=== PATIENT | male | born 1980 | race Caucasian/White ===

== ENCOUNTER 2018-11-26 20:59 | Emergency (ER) | payer OTHER ==
[~2018-11-26] VITALS: Ht 172.7 cm; Wt 99.9 kg
[2018-11-26 21:07] VITALS: Ht 172.7 cm; Wt 99.9 kg
[2018-11-26 23:50] VITALS: BP 110/60
== END 2018-11-26 23:50 | disposition home or self-care (01) ==
LOC: ED 20:59
DX: J45.909 Unspecified asthma, uncomplicated (principal); Z98.890 Other specified postprocedural states
CPT/HCPCS: J2920; J7620

== ENCOUNTER 2019-01-29 18:12 | Emergency (ER) | payer OTHER ==
[~2019-01-29] VITALS: Ht 172.7 cm; Wt 100.2 kg
[2019-01-29 18:15] VITALS: Ht 172.7 cm; Wt 100.2 kg
[2019-01-29 18:48] LABS: microscopic required? NO
[2019-01-29 19:02] LABS: urine erythrocyte NEGATIVE (NEGATIVE)
[2019-01-29 19:04] LABS: BASOPHIL % 1.1 % (0-2); PLATELET COUNT 234 x10^3mcL (130-400); RED CELL DISTRIBUTION WIDTH 13.8 % (11.5-14.5)
[2019-01-29 19:06] LABS: CALCIUM 8.9 mg/dL (8.5-10.1); CARBON DIOXIDE 30.4 mmol/L (21-32); CHLORIDE SERUM 104 mmol/L (98-107); GFR1 > 60 mL/min; GLUCOSE SERUM 98 mg/dL (74-106); SODIUM SERUM 141 mmol/L (136-145)
[2019-01-29 19:12] LABS: AMPHETAMINE QUAL UR NONE DETECTED (See below)
[2019-01-29 19:18] LABS: ALBUMIN 4.4 g/dL (3.4-5.0); ALKALINE PHOSPHATASE 66 U/L (46-116); ALT/SGPT 49 U/L (16-63); AST/SGOT 20 U/L (15-37); BILIRUBIN TOTAL 1.2 mg/dL (0.20-1.00); HDL CHOLESTEROL 57 mg/dL (40-60); LIPASE 121 IU/L (73-393); T4(THYROXINE) 6.8 ug/dL (4.7-13.3); TOTAL PROTEIN, SERUM 7.8 g/dL (6.4-8.2)
[2019-01-29 19:19] LABS: CHOLESTEROL 208 mg/dL (<200)
[2019-01-29 21:42] VITALS: BP 114/55
== END 2019-01-29 21:42 | disposition home or self-care (01) ==
LOC: ED 18:12
PROVIDERS: Emergency Medicine
DX: R10.13 Epigastric pain (principal); R11.0 Nausea; K21.9 Gastro-esophageal reflux disease without esophagitis; R10.11 Right upper quadrant pain
CPT/HCPCS: J1885; J2270; J3490; J7030; Q0092; Q9967

== ENCOUNTER 2019-01-31 15:56 | Emergency (ER) | payer OTHER ==
[~2019-01-31] VITALS: Ht 172.7 cm; Wt 101.2 kg
[2019-01-31 15:59] VITALS: Ht 172.7 cm; Wt 101.2 kg
[2019-01-31 17:06] LABS: microscopic required? NO
[2019-01-31 17:19] LABS: BASOPHIL % 0.3 % (0-2); PLATELET COUNT 223 x10^3mcL (130-400); RED CELL DISTRIBUTION WIDTH 13.7 % (11.5-14.5)
[2019-01-31 17:20] LABS: UA SPECIFIC GRAVITY 1.025 (1.005-1.035); urine erythrocyte NEGATIVE (NEGATIVE)
[2019-01-31 17:31] LABS: CALCIUM 8.7 mg/dL (8.5-10.1); CARBON DIOXIDE 30.2 mmol/L (21-32); CHLORIDE SERUM 104 mmol/L (98-107); CREATININE SERUM 1.1 mg/dL (0.7-1.3); GFR1 > 60 mL/min; GLUCOSE SERUM 95 mg/dL (74-106); POTASSIUM SERUM 3.9 mmol/L (3.5-5.1); SODIUM SERUM 141 mmol/L (136-145)
[2019-01-31 17:36] LABS: ALKALINE PHOSPHATASE 64 U/L (46-116); ALT/SGPT 42 U/L (16-63); AST/SGOT 17 U/L (15-37); BILIRUBIN TOTAL 1.21 mg/dL (0.20-1.00); LIPASE 89 IU/L (73-393); TOTAL PROTEIN, SERUM 7.4 g/dL (6.4-8.2)
[2019-01-31 19:41] VITALS: BP 110/60
== END 2019-01-31 19:41 | disposition home or self-care (01) ==
LOC: ED 15:56
PROVIDERS: Emergency Medicine
DX: R10.11 Right upper quadrant pain (principal); R11.0 Nausea; R35.0 Frequency of micturition
CPT/HCPCS: 36415; Q0092; Q0162

== ENCOUNTER 2019-10-14 23:35 | Emergency (ER) | payer OTHER ==
[~2019-10-14] VITALS: Ht 172.7 cm; Wt 101.6 kg
[2019-10-14 23:38] VITALS: Ht 172.7 cm; Wt 101.6 kg
[2019-10-15 01:29] LABS: CALCIUM 9.2 mg/dL (8.5-10.1); CARBON DIOXIDE 29.3 mmol/L (21-32); CHLORIDE SERUM 103 mmol/L (98-107); CREATININE SERUM 1.1 mg/dL (0.7-1.3); GFR1 > 60 mL/min; GLUCOSE SERUM 100 mg/dL (74-106); POTASSIUM SERUM 4.2 mmol/L (3.5-5.1); SODIUM SERUM 139 mmol/L (136-145)
[2019-10-15 01:34] LABS: ALBUMIN 4.3 g/dL (3.4-5.0); ALKALINE PHOSPHATASE 87 U/L (46-116); ALT/SGPT 23 U/L (16-63); AST/SGOT 22 U/L (15-37); BILIRUBIN TOTAL 0.47 mg/dL (0.20-1.00); HDL CHOLESTEROL 49 mg/dL (40-60); LIPASE 161 IU/L (73-393); TOTAL PROTEIN, SERUM 7.8 g/dL (6.4-8.2)
[2019-10-15 01:36] LABS: BASOPHIL % 0.4 % (0-2); PLATELET COUNT 247 x10^3mcL (130-400); RED CELL DISTRIBUTION WIDTH 13.4 % (11.5-14.5)
[2019-10-15 01:52] LABS: microscopic required? NO
[2019-10-15 02:01] LABS: CHOLESTEROL 214 mg/dL (<200); CHOLESTEROL/HDL RATIO 4.4; TRIGLYCERIDES 300 mg/dL (<150)
[2019-10-15 02:04] LABS: urine erythrocyte NEGATIVE (NEGATIVE)
[2019-10-15 02:43] VITALS: BP 117/66
== END 2019-10-15 02:43 | disposition home or self-care (01) ==
LOC: ED 23:35
PROVIDERS: Emergency Medicine; Specialist
DX: K29.70 Gastritis, unspecified, without bleeding (principal); R07.89 Other chest pain
CPT/HCPCS: 83880; Q0092

== ENCOUNTER 2019-11-22 22:07 | Emergency (ER) | payer OTHER ==
[~2019-11-22] VITALS: Ht 172.7 cm; Wt 103.9 kg
[2019-11-22 22:44] VITALS: Ht 172.7 cm; Wt 103.9 kg
[2019-11-23 02:28] VITALS: BP 124/65
== END 2019-11-23 01:05 | disposition home or self-care (01) ==
LOC: ED 22:07
DX: R51.9 Headache, unspecified (principal); G89.29 Other chronic pain; M54.2 Cervicalgia
CPT/HCPCS: J1200; J1885; J2765

== ENCOUNTER 2020-02-15 20:38 | Emergency (ER) | payer OTHER, SELFPAY ==
[~2020-02-15] VITALS: Ht 172.7 cm; Wt 102.1 kg
[2020-02-15 21:18] VITALS: Ht 172.7 cm; Wt 102.1 kg
[2020-02-15 22:10] LABS: microscopic required? NO
[2020-02-15 22:31] LABS: urine erythrocyte NEGATIVE (NEGATIVE)
[2020-02-15 23:18] LABS: BASOPHIL % 0.7 % (0.2-1.5); PLATELET COUNT 198 x10^3mcL (152-348); RED CELL DISTRIBUTION WIDTH 13.7 % (12.1-16.2)
[2020-02-15 23:46] LABS: CARBON DIOXIDE 29.2 mmol/L (21-32); CHLORIDE SERUM 102 mmol/L (98-107); CREATININE SERUM 1.1 mg/dL (0.7-1.3); GFR1 > 60 mL/min; GLUCOSE SERUM 96 mg/dL (74-106); POTASSIUM SERUM 4.3 mmol/L (3.5-5.1); SODIUM SERUM 139 mmol/L (136-145)
[2020-02-15 23:50] LABS: ALBUMIN 4.4 g/dL (3.4-5.0); ALKALINE PHOSPHATASE 74 U/L (46-116); ALT/SGPT 31 U/L (16-63); AST/SGOT 19 U/L (15-37); BILIRUBIN DIRECT 0.15 mg/dL (0.0-0.2); BILIRUBIN TOTAL 0.6 mg/dL (0.20-1.00); CALCIUM 8.9 mg/dL (8.5-10.1); TOTAL PROTEIN, SERUM 7.6 g/dL (6.4-8.2)
[2020-02-15 23:57] LABS: LIPASE 148 IU/L (73-393)
[2020-02-16 00:10] VITALS: BP 138/87
== END 2020-02-16 00:10 | disposition home or self-care (01) ==
LOC: ED 20:38
PROVIDERS: Emergency Medicine
DX: U07.1 COVID-19 (principal); G89.29 Other chronic pain; R10.11 Right upper quadrant pain; R10.13 Epigastric pain; Z98.890 Other specified postprocedural states
CPT/HCPCS: U0003